=== PATIENT | male | born 1950 | race Caucasian/White ===

== ENCOUNTER 2024-02-11 07:20 | Day surgery (SDC) | payer BC, MEDICARE ==
[~2024-02-11] VITALS: Ht 180.3 cm; Wt 81.3 kg
[~2024-02-11 07:20] MED LIST: ATOR1TAB19 PO; ECOT81TA5 PO; LEVE500T5 PO; MIDAZOLAM INJ 2MG/2ML VIAL As Ordered ONE; PHENYLEPHRINE 10% OPHTH SOL 5ML OS PRN; fentaNYL 100 MCG/2 ML INJECTION As Ordered ONE
[2024-02-11] MEDS: TROPICAMIDE 1% OPHTH SOLN 15ML OS SCH (07:51)
[2024-02-11] MEDS: PHENYLEPHRINE 2.5% OPHTH SOL 2ML OS SCH (07:51)
[2024-02-11] MEDS: OFLOXACIN 0.3 % (OCUFLOX) OPTH SOL 5ML OS ONE (07:51)
[2024-02-11] MEDS: ATROPINE SULFATE 1% OPHTH SOLN 2ML BTL OS SCH (07:51)
[2024-02-11] MEDS: LIDOCAINE 3.5 % 1ML OPHTH TOPICAL GEL OU ONE (07:52)
[2024-02-11] MEDS: LIDOCAINE 1% SDV 5ML VIAL As Ordered ONE (08:46)
[2024-02-11] MEDS: DUOVISC (0.50ML VISCOAT/0.85ML PROVISC) OPHTH KIT As Ordered ONE (08:46)
[2024-02-11] MEDS: BSS IRRIG/VANCO(10MG)/TOBRA(5MG)/EPINEPH(1:1000-0.5CC)500ML BAG-ORONLY As Ordered ONE (08:46)
[2024-02-11] MEDS: CEFUROXIME 1MG/0.1ML INTRACAMERAL INJ As Ordered ONE (08:47)
[2024-02-11 09:09] VITALS: BP 160/81; TEMP 97.1; O2SAT 98
== END 2024-02-11 09:22 | disposition home or self-care (01) ==
LOC: M SDC 07:20
PROVIDERS: ATTEND Ophthalmology
DX: H40.1112 Primary open-angle glaucoma, right eye, moderate stage (principal); H25.11 Age-related nuclear cataract, right eye; I48.91 Unspecified atrial fibrillation; G40.909 Epilepsy, unspecified, not intractable, without status epilepticus; E78.00 Pure hypercholesterolemia, unspecified; Z79.899 Other long term (current) drug therapy; N40.1 Benign prostatic hyperplasia with lower urinary tract symptoms; R35.1 Nocturia; Z79.82 Long term (current) use of aspirin; Z86.73 Personal history of transient ischemic attack (TIA), and cerebral infarction without residual deficits
CPT/HCPCS: 66991; C1783; J0697; J2250; J3010; V2788

== ENCOUNTER 2024-05-19 07:28 | Day surgery (SDC) | payer MEDICARE, BC ==
[~2024-05-19] VITALS: Ht 180.3 cm; Wt 81.6 kg
[~2024-05-19 07:28] MED LIST changes: -MIDAZOLAM INJ 2MG/2ML VIAL As Ordered ONE; -fentaNYL 100 MCG/2 ML INJECTION As Ordered ONE
[2024-05-19] MEDS: LIDOCAINE 3.5 % 1ML OPHTH TOPICAL GEL OU ONE (08:00)
[2024-05-19] MEDS: OFLOXACIN 0.3 % (OCUFLOX) OPTH SOL 5ML OS ONE (08:00)
[2024-05-19] MEDS: TROPICAMIDE 1% OPHTH SOLN 15ML OS SCH (08:03)
[2024-05-19] MEDS: ATROPINE SULFATE 1% OPHTH SOLN 2ML BTL OS SCH (08:03)
[2024-05-19] MEDS: PHENYLEPHRINE 2.5% OPHTH SOL 2ML OS SCH (08:03)
[2024-05-19] MEDS ORDERED: MIDAZOLAM INJ 2MG/2ML VIAL As Ordered ONE (08:34)
[2024-05-19] MEDS ORDERED: fentaNYL 100 MCG/2 ML INJECTION As Ordered ONE (08:35)
[2024-05-19] MEDS: LIDOCAINE 1% SDV 5ML VIAL As Ordered ONE (09:10)
[2024-05-19] MEDS: BSS IRRIG/VANCO(10MG)/TOBRA(5MG)/EPINEPH(1:1000-0.5CC)500ML BAG-ORONLY As Ordered ONE (09:11)
[2024-05-19] MEDS: CEFUROXIME 1MG/0.1ML INTRACAMERAL INJ As Ordered ONE (09:11)
[2024-05-19 09:22] VITALS: BP 165/85; TEMP 97.3; O2SAT 100
== END 2024-05-19 09:42 | disposition home or self-care (01) ==
LOC: M SDC 07:28
PROVIDERS: ATTEND Ophthalmology
DX: H25.12 Age-related nuclear cataract, left eye (principal); E78.5 Hyperlipidemia, unspecified; G40.909 Epilepsy, unspecified, not intractable, without status epilepticus; Z79.899 Other long term (current) drug therapy
CPT/HCPCS: 66984; 92015; J0697; J2250; J3010; V2788